=== PATIENT | female | born 1985 | race Caucasian/White ===

== ENCOUNTER 2018-09-16 05:04 | Inpatient (IN) | payer OTHER ==
[~2018-09-16] VITALS: Ht 149.9 cm; Wt 79.5 kg
[2018-09-16] VITALS (9 sets, daily range): BP systolic 102–121; BP diastolic 55–68
[~2018-09-16 05:04] MED LIST: BENA25CA4 PO; FERROUS GLUCONATE PO; PRENTAB53 PO; ZYRT10CA5 PO
[2018-09-16 05:52] LABS: HEMATOCRIT 29.3 % (36.0-47.0); HEMOGLOBIN 9.7 g/dl (12.0-15.5); MEAN CORPUSCULAR HGB CONC 33.1 g/dl (32.0-36.5); MEAN CORPUSCULAR VOLUME 81.6 fl (80.0-96.0); PLATELET COUNT, AUTOMATED 164 10^3/uL (150-450); RED BLOOD COUNT 3.59 10^6/uL (4.00-5.40); WHITE BLOOD COUNT 8.7 10^3/uL (4.0-10.0)
[2018-09-16] MEDS ORDERED: BICITRA 30ML SOLN UDC PO ONE (06:00)
[2018-09-16] MEDS ORDERED: LR 1,000 ML IV ONE (06:00)
[2018-09-16] MEDS ORDERED: OXYTOCIN INJ 10 UNITS/ML VIAL (J2590) As Ordered ONE (07:24)
[2018-09-16] MEDS ORDERED: MORPHINE PRES-FREE INJ 10 MG/10 ML VIAL (J2274) As Ordered ONE (07:27)
[2018-09-16] MEDS ORDERED: METOCLOPRAMIDE INJ 10MG/2ML VIAL (J2765) IV PRN ×2 (07:38→09:15)
[2018-09-16] MEDS ORDERED: NALBUPHINE HCL 10 MG/ML AMP (J2300) IV PRN (07:38)
[2018-09-16] MEDS ORDERED: NALOXONE INJ 0.4 MG/1 ML VIAL (J2310) IV PRN ×2 (07:38)
[2018-09-16] MEDS ORDERED: ONDANSETRON 4MG/2ML VIAL (J2405) IV PRN ×3 (07:38→09:15)
[2018-09-16] MEDS ORDERED: diphenhydrAMINE INJ 50MG/ML VIAL (J1200) IV PRN (07:38)
--- NOTE | 2018-09-16 07:40 | IPNPDOC ---
Text Note Date of Service The patient was seen on 09/16/18. NOTE Patient met on the morning of surgery. Eleonora and her have spoken e xtensively and now desire tubal sterilization to be performed at the time of c section. I discussed risk of regret along with other added risks of tubal sterilization. All questions were answered and she desires to proceed. Consent form changed to include tubal sterilization. Jay Sanchez DO VS,Joo, I+O VS, Joo, I+O Laboratory Tests 09/16/18 05:43 Red Blood Count 3.59 L, Mean Corpuscular Volume 81.6, Mean Corpuscular Hemoglobin 27.0, Mean Corpuscular Hemoglobin Concent 33.1, Red Cell Distribution Width 15.4 H Vital Signs Date Time Temp Pulse Resp B/P (MAP) Pulse Ox O2 Delivery O2 Flow Rate FiO2 09/16/18 07:09 75 18 107/68 (81) 09/16/18 05:30 98.2 JAY SANCHEZ DO Sep 16, 2018 07:40
[2018-09-16] MEDS ORDERED: ePHEDrine SULFATE 25 MG/5 ML(5MG/ML) SYRINGE As Ordered ONE (08:08)
[2018-09-16] MEDS ORDERED: ONDANSETRON 4MG/2ML VIAL (J2405) As Ordered ONE (08:08)
[2018-09-16] MEDS ORDERED: KETOROLAC 60 MG/2 ML VIAL (J1885) As Ordered ONE (08:14)
[2018-09-16] MEDS ORDERED: fentaNYL 100 MCG/2 ML INJECTION (J3010) As Ordered ONE (08:14)
[2018-09-16] MEDS ORDERED: PERCOCET 5MG/325MG TAB PO PRN ×2 (09:00→09:15)
[2018-09-16] MEDS ORDERED: MEASLES,MUMPS,RUBELLA VACCINE INJ (MMR-II) (90707) SC SCH (09:00)
[2018-09-16] MEDS ORDERED: MOM 30ML SUSPENSION UDC PO PRN (09:00)
[2018-09-16] MEDS ORDERED: RHOGAM 300 MCG (1500 IU) INJ (J2790) IM SCH (09:00)
[2018-09-16] MEDS: PRENATAL VITAMINS CHEWABLE TABLET PO SCH (09:00)
[2018-09-16] MEDS ORDERED: DOCUSATE SODIUM 100 MG CAP PO PRN (09:00)
[2018-09-16] MEDS ORDERED: fentaNYL 100 MCG/2 ML INJECTION (J3010) IV PRN (09:15)
[2018-09-16] MEDS ORDERED: LR 1,000 ML IV SCH (09:15)
[2018-09-16] MEDS ORDERED: BUPIVACAINE/DEXTROSE 0.75% 2 ML AMP As Ordered ONE (09:52)
[2018-09-16] MEDS: KETOROLAC 30 MG/ML VIAL (J1885) IV SCH ×2 (13:39→20:07)
[2018-09-16] MEDS ORDERED: PROMETHAZINE INJ 25 MG/ML VIAL (J2550) IV ONE (17:15)
[2018-09-17] MEDS: KETOROLAC 30 MG/ML VIAL (J1885) IV SCH (01:54)
[2018-09-17 02:00] VITALS: BP 115/56
[2018-09-17 06:00] VITALS: BP 112/57
[2018-09-17 06:21] LABS: HEMOGLOBIN 8.4 g/dl (12.0-15.5); MEAN CORPUSCULAR HEMOGLOBIN 27.1 pg (27.0-33.0); MEAN CORPUSCULAR HGB CONC 32.3 g/dl (32.0-36.5); MEAN CORPUSCULAR VOLUME 83.9 fl (80.0-96.0); PLATELET COUNT, AUTOMATED 162 10^3/uL (150-450); WHITE BLOOD COUNT 8.9 10^3/uL (4.0-10.0)
--- NOTE | 2018-09-17 08:05 | IPNPDOC ---
Progress Note Date of Service: Sep 17, 2018 Progress Note Michela is a 32 yo G5 now P3 who underwent an uncomplicated scheduled RLTCS with BTL yesterday who is now recovering on . Michela overall is doing well today, she just feels sore. She ambulated last night without issues. she had some nausea and emesis yesterday but has since been able to tolerate a regular diet without issues. She denies any chest pain, SOB, dizziness, or excessive fatigue with ambulation. Trevino catheter is still in place. Vitals - VSS, afebrile, normotensive, non tachycardic General - AAOX3, sitting up in bed, NAD Abdomen - Fundus firm at U-1. No tenderness. Bandage over incision removed. Incision clean/dry/intact. Steri strips in place. No tenderness to palpation. Extremities - SCDs in place. UO - Excellent, >75cc/hr over last several hours Labs: Pre op H/H - 9.7/29.3 ---> post op this AM 8.4/26.0 Michela is doing well and is making an appropriate post op / recovery. Continue to encourage ambulation today and IS use. Trevino catheter to be removed. SCDs until fully ambulatory. Continue routine care. Anticipate DC home tomorrow if appropriate. DO Daniel VS, I&O, 24H, Joo Vital Signs/I&O Vital Signs Date Time Temp Pulse Resp B/P (MAP) Pulse Ox O2 Delivery O2 Flow Rate FiO2 09/17/18 06:00 98.2 81 17 112/57 (75) 09/16/18 18:02 99 I&O- Last 24 Hours up to 6 AM 09/17/18 06:00 Output Total 1470 ml Balance -1470 ml Laboratory Data 24H LABS Laboratory Tests 2 09/17/18 06:04: Nucleated Red Blood Cells % (auto) 0.0 CBC/BMP Laboratory Tests 09/17/18 06:04 Red Blood Count 3.10 L, Mean Corpuscular Volume 83.9, Mean Corpuscular Hemoglobin 27.1, Mean Corpuscular Hemoglobin Concent 32.3, Red Cell Distribution Width 15.6 H JAY LAGUERRE DO Sep 17, 2018 08:05
[2018-09-17] MEDS: PRENATAL VITAMINS CHEWABLE TABLET PO SCH (08:12)
[2018-09-17 10:00] VITALS: BP 111/57
[2018-09-17] MEDS: IBUPROFEN 800 MG TAB PO SCH ×2 (11:08→17:49)
--- NOTE | 2018-09-17 12:31 | RO ---
DATE OF PROCEDURE: 09/16/2018 PREOPERATIVE DIAGNOSIS: History of section times two and satisfied parity. POSTOPERATIVE DIAGNOSIS: History of section times two and satisfied parity. PROCEDURE: Repeat low transverse section and bilateral tubal ligation. SURGEON: Dr. Sanchez MACHINE HAND: Dr. Montenegro ANESTHESIA: Spinal. FLUIDS: 1800 mL of lactated Ringer's (LR). URINE OUTPUT: 100 mL via Trevino catheter. ESTIMATED BLOOD LOSS (EBL): 500 mL. COMPLICATIONS: None. ANTIBIOTICS: 2 grams Ancef. DETAILED PROCEDURE DESCRIPTION: The risks, benefits, indications, and alternatives of the procedure were reviewed with the patient, and informed consent was obtained. The patient was taken to the operating room, where spinal anesthesia was obtained without difficulty. She was then prepped and draped in the usual sterile fashion in the dorsal supine position. A surgical time-out was then performed and the patient's identity and planned procedure were verified with the operative team. A Trevino catheter had previously been placed to drain the bladder. A Pfannenstiel skin incision was then made with a scalpel and carried through to the underlying layer of fascia using the Bovie electrocautery. The fascia was incised in the midline, and the incision was extended laterally with Small scissors. The superior aspect of the fascial incision was then grasped with Ankur clamps, elevated, and the underlying rectus muscles were dissected off with a scalpel. Attention was then turned to the inferior aspect of this incision, which in a similar fashion, was grasped, tented up with Ankur clamps and the rectus muscles were then dissected off with Small scissors. The rectus muscles were then at the midline. The peritoneum was identified and entered digitally. The peritoneal incision was then extended horizontally and superiorly with good visualization of the bladder. A bladder blade was then inserted into the abdomen. The vesicouterine peritoneum was then identified and entered sharply with the scalpel. This incision was then extended laterally and a bladder flap was created digitally. Next, the lower uterine segment was incised in a transverse fashion with a scalpel. The uterine incision was extended manually. The amniotic sac was artificially ruptured productive of clear fluid. The infant was found in cephalic presentation. The infant's head was then delivered atraumatically through the hysterotomy without difficulty, followed by the remainder of the body. The nose and mouth were suctioned with a bulb syringe, and the cord was doubly clamped and cut. The infant cried spontaneously, and was then handed off to the awaiting pediatricians. The placenta was then removed manually, and the uterus was exteriorized and cleared of all clots and debris. The uterine incision was then repaired with #0 Monocryl suture in a running locked fashion. Inspection with the hysterotomy revealed excellent hemostasis. Attention was then turned to the patient's fallopian tubes bilaterally. The right fallopian tube was then grasped in the isthmic portion with a Ricci clamp. A window was created in the underlying mesosalpinx using Bovie electrocautery. The fallopian tube segment was then ligated with plain gut suture on two sides. The fallopian tube segment was then excised with Metzenbaum scissors, and the segment was handed off the field to pathology. Inspection of the excised fallopian tube segment operative sites revealed excellent hemostasis. Attention was then turned to the other fallopian tube. In a similar fashion, the other fallopian tube was then ligated, transected and a segment was excised and sent to pathology for review. Inspection of all the tubal operative sites revealed excellent hemostasis. Thus tubal sterilization was completed via the [place] method. Attention was then turned to back to the patient's hysterotomy, which again was noted to be hemostatic. The posterior cul-de-sac was then irrigated. The uterus was returned to the abdomen. The hysterotomy was again inspected. There was slight oozing at the right lateral edge of the hysterotomy, which was made hemostatic with a single [id number] suture of 0 Vicryl. Inspection of the remainder of the hysterotomy revealed excellent hemostasis. The paracolic gutters were then irrigated and cleared of all clots and debris. Inspection of the peritoneal edges and lower uterine segment revealed scant oozing, which was controlled with Bovie electrocautery and then Kaylan was placed in this area and excellent hemostasis was achieved. The bladder blade was then removed from the abdomen. The peritoneum was then closed with #3-0 Vicryl suture in a running fashion. The fascia was then reapproximated with #0 Vicryl suture in a running fashion. The subcutaneous fat was closed with #3-0 Vicryl suture in a running fashion. Before skin closure, irrigation was performed within the subcutaneous tissue layer to good effect. The skin was then closed with #4-0 Monocryl suture in a subcuticular fashion. The incision was then dressed with Steri-Strips and a pressure dressing was applied. At the completion of the case, a bimanual exam was performed, which revealed good uterine tone and minimal vaginal bleeding. The patient tolerated the procedure well. Sponge, instrument and needle counts were correct times three. The patient was taken to the recovery room in stable condition. BRISEYDA
[2018-09-17] MEDS: PERCOCET 5MG/325MG TAB PO PRN ×3 (13:11→23:12)
[2018-09-17 14:52] VITALS: BP 113/59
[2018-09-17 18:00] VITALS: BP 125/58
[2018-09-17 22:00] VITALS: BP 110/58
[2018-09-18] MEDS: IBUPROFEN 800 MG TAB PO SCH ×2 (01:53→09:21)
[2018-09-18 02:00] VITALS: BP 109/59
[2018-09-18] MEDS: PERCOCET 5MG/325MG TAB PO PRN (05:38)
[2018-09-18 06:00] VITALS: BP 122/63
--- NOTE | 2018-09-18 07:01 | DS.PDOC ---
Discharge Summary General Date of Admission Sep 16, 2018 at 05:04 Date of Discharge Sep 18, 2018 Discharge Summary HOSPITAL COURSE: Ms. Anderson is a 32 yo G5 now P3 who underwent an uncomplicated scheduled RLTCS with BTL on [id number]. Her /postoperative course has been unremarkable. On her day of discharge she met all appropriate discharge criteria. She was ambulating, voiding, tolerating a regular diet, passing gas, had minimal lochia, and her pain was well controlled with PO pain medications. DISCHARGE MEDICATIONS: Please see below. ALLERGIES: Please see below. PHYSICAL EXAMINATION ON DISCHARGE: VITAL SIGNS: Please see below. GENERAL: AAOX3, sitting up in bed, NAD ABDOMINAL EXAMINATION: Fundus firm at U-2. No fundal tenderness. Incision well appearing, clean/dry/intact. Steri strips in place. No tenderness to palpation EXTREMITIES: Mild lower extremity edema PSYCHIATRIC EXAMINATION: Affect appropriate LABORATORY DATA: Please see below. ACTIVITY: Pelvic rest for 6 weeks. No lifting >10 pounds for 6 weeks. DIET: Regular DISCHARGE PLAN: discharge home on [id number] DISPOSITION: Discharge home. DISCHARGE INSTRUCTIONS: 1. Pelvic rest for 6 weeks. 2. Reviewed post operative recovery instructions after section ITEMS TO FOLLOWUP ON ON OUTPATIENT: 1. Incision check in 2 weeks 2. appointment in 6-8 weeks. DISCHARGE CONDITION: Stable. TIME SPENT ON DISCHARGE: Greater than 20 minutes. Jay Sanchez DO Vital Signs/I&Os Vital Signs Date Time Temp Pulse Resp B/P (MAP) Pulse Ox O2 Delivery O2 Flow Rate FiO2 09/18/18 06:00 97.9 70 17 122/63 (82) 09/17/18 22:00 97 I&O- Last 24 Hours up to 6 AM 09/18/18 06:00 Output Total 825 ml Balance -825 ml Discharge Medications Scheduled Cetirizine HCl (Zyrtec Allergy) 10 Mg Tab, 10 MG PO DAILY, (Reported) Diphenhydramine HCl (Benadryl Allergy) 25 Mg Cap, 25 MG PO BID, (Reported) Multivitamins/ (Prenatabs Rx 29-1 mg) 1 Tab Tab, 1 TAB PO DAILY, (Reported) [Ferrous Gluconate ] , 27 MG PO BID, (Reported) Allergies Coded Allergies: No Known Allergies (Unverified , 09/09/18) JAY SANCHEZ DO Sep 18, 2018 07:01
[2018-09-18] MEDS ORDERED: MOM30SS PO (08:37)
[2018-09-18] MEDS ORDERED: OXYC1TAB23 PO (08:37)
[2018-09-18] MEDS ORDERED: COLA100C5 PO (08:37)
[2018-09-18] MEDS ORDERED: IBUP-1114 PO (08:37)
[2018-09-18] MEDS: PRENATAL VITAMINS CHEWABLE TABLET PO SCH (09:20)
== END 2018-09-18 11:45 | disposition home or self-care (01) | DRG 785 ==
LOC: M LDI 05:04 → M OBS 10:49
PROVIDERS: ADMIT Obstetrics & Gynecology; ATTEND Obstetrics & Gynecology
PROC: 0UB70ZZ Excision of Bilateral Fallopian Tubes, Open Approach (ICD-10-PCS; 2018-09-16)
PROC: 10D00Z1 Extraction of Products of Conception, Low, Open Approach (ICD-10-PCS; principal; 2018-09-16 07:30)
DX: O34.211 Maternal care for low transverse scar from previous cesarean delivery (principal); Z37.0 Single live birth; Z3A.39 39 weeks gestation of pregnancy; Z30.2 Encounter for sterilization

== ENCOUNTER → 2018-12-03 | Outpatient (REF) | payer OTHER ==
[~2018-12-03] MED LIST changes: +COLA100C5 PO; +IBUP-1114 PO; +MOM30SS PO; +OXYC1TAB23 PO
== END ==
LOC: M SFHCLERA 15:30
PROVIDERS: ATTEND Physician Assistant
DX: N39.0 Urinary tract infection, site not specified (principal)
CPT/HCPCS: 81002; 81025; 87086; G0463